=== PATIENT | female | born 1965 | race Caucasian/White ===

== ENCOUNTER 2021-03-07 07:09 | Inpatient (IN) | payer BC ==
[~2021-03-07] VITALS: Ht 157.5 cm; Wt 40.8 kg
[2021-03-07 07:31] LABS: HEMOGLOBIN 13.9 gm/dl (12.3-15.3); RED BLOOD COUNT 5.32 M/UL (4.00-5.10); WHITE BLOOD COUNT 4.9 K/UL (4.5-11.0)
[2021-03-07] MEDS ORDERED: ASPIRIN EC81 MG PO (12:12)
[2021-03-07] MEDS ORDERED: LEVOTHYROXINE50 MCG PO (12:12)
[2021-03-07] MEDS ORDERED: FEROSUL325 MG PO (12:12)
[2021-03-07] MEDS ORDERED: METOPROLOL TART50 MG PO (12:13)
[2021-03-07] MEDS ORDERED: TERAZOSIN HCL10 MG PO (12:13)
[2021-03-07] MEDS ORDERED: VITAMIN D21250 MCG PO (12:14)
[2021-03-07] MEDS ORDERED: HYDROCHLOROTHIA25 MG PO (12:15)
[2021-03-07] MEDS ORDERED: BUMETANIDE1 MG PO (12:17)
[2021-03-08 05:32] LABS: HEMOGLOBIN 12.6 gm/dl (12.3-15.3); RED BLOOD COUNT 4.88 M/UL (4.00-5.10)
[2021-03-08 05:43] LABS: WHITE BLOOD COUNT 6.5 K/UL (4.5-11.0)
[2021-03-11] MEDS ORDERED: DECADRON6 MG PO (09:43)
[2021-03-11] MEDS ORDERED: AUGMENTIN 875-1 EACH PO (09:43)
[2021-03-11] MEDS ORDERED: HYDRALAZINE HCL25 MG PO ×2 (09:44→09:47)
== END 2021-03-11 14:05 | disposition home or self-care (01) | DRG 177 ==
LOC: ER1 07:09 → CDU 09:03 → MED SURG 4 09:03
PROVIDERS: Physician Assistant Medical; ADMIT Internal Medicine
PROC: 8E0ZXY6 Isolation (ICD-10-PCS; principal; 2021-03-07)
PROC: 3E0333Z Introduction of Anti-inflammatory into Peripheral Vein, Percutaneous Approach (ICD-10-PCS; 2021-03-07)
DX: U07.1 COVID-19 (principal); J12.82 Pneumonia due to coronavirus disease 2019; J96.01 Acute respiratory failure with hypoxia; J69.0 Pneumonitis due to inhalation of food and vomit; N17.0 Acute kidney failure with tubular necrosis; M32.9 Systemic lupus erythematosus, unspecified; F17.210 Nicotine dependence, cigarettes, uncomplicated; R00.1 Bradycardia, unspecified; I73.00 Raynaud's syndrome without gangrene; E78.5 Hyperlipidemia, unspecified; E03.9 Hypothyroidism, unspecified; I10 Essential (primary) hypertension; E87.6 Hypokalemia; Z86.73 Personal history of transient ischemic attack (TIA), and cerebral infarction without residual deficits; Z82.49 Family history of ischemic heart disease and other diseases of the circulatory system; Z90.710 Acquired absence of both cervix and uterus; Z79.899 Other long term (current) drug therapy
CPT/HCPCS: 36415; 36600; 71045; 71250; 80048; 80053; 81001; 82550; 82553; 82570; 82803; 83605; 83735; 83874; 84132; 84300; 84484; 85025; 85027; 87040; 89050; 93005; 94664; 96374; 99285; J0295; J0360; J0696; J1100; J1650; J7030; U0002

== ENCOUNTER → 2021-08-15 | Outpatient (CLI) | payer BC ==
[~2021-08-15] MED LIST: ASPIRIN EC81 MG PO; AUGMENTIN 875-1 EACH PO; BUMETANIDE1 MG PO; DECADRON6 MG PO; FEROSUL325 MG PO; HYDRALAZINE HCL25 MG PO; HYDROCHLOROTHIA25 MG PO; LEVOTHYROXINE50 MCG PO; METOPROLOL TART50 MG PO; TERAZOSIN HCL10 MG PO; VITAMIN D21250 MCG PO
== END ==
LOC: ECHO 10:00
DX: R94.31 Abnormal electrocardiogram [ECG] [EKG] (principal); I51.7 Cardiomegaly; I35.8 Other nonrheumatic aortic valve disorders
CPT/HCPCS: ECHO; 93306